=== PATIENT | male | born 1970 | race African-American/Black ===

== ENCOUNTER 2025-07-24 02:03 | Emergency (ER) | payer SELFPAY ==
[~2025-07-24] VITALS: Ht 180.3 cm; Wt 91.0 kg
[2025-07-24 02:07] VITALS: O2SAT 99
[2025-07-24] MEDS: ONDANSETRON HCL 4MG/2ML INJ IV NR (02:38)
[2025-07-24] MEDS: SODIUM CHLORIDE 0.9% 1,000 ML IV ONE (02:38)
[2025-07-24] MEDS: KETOROLAC 15MG/ML VIAL IM NR (02:38)
[2025-07-24] MEDS: MORPHINE SULFATE 4 MG/ML INJ (FOR IV/IM USE) IV ONE ×2 (02:55→03:25)
[2025-07-24 02:57] LABS: HEMATOCRIT. 43.1 % (42.0-52.0); HEMOGLOBIN. 13.5 g/dL (14.0-18.0); MEAN PLATELET VOLUME 8.2 fl (7.4-10.4); PLATELET 272 x1000/uL (130-400); RED BLOOD CELL COUNT 5.18 mill/uL (4.7-6.1); RED CELL DISTRIBUTION WIDTH 15.0 % (11.6-14.6)
[2025-07-24 03:11] LABS: CREATININE 1.4 mg/dL (0.6-1.3); UREA NITROGEN BLOOD 12 mg/dL (9-23)
[2025-07-24 03:13] LABS: ASPARTATE AMINOTRANSFERASE 28 IU/L (<34); BILIRUBIN DIRECT 0.1 mg/dL (<=3.0); BILIRUBIN TOTAL 0.4 mg/dL (0.1-1.0); PROTEIN TOTAL 6.5 g/dL (6.0-8.3)
[2025-07-24] MEDS: CEPHALEXIN 250MG CAPSULE PO ONE (04:07)
[2025-07-24] MEDS: TAMSULOSIN HCL 0.4MG SR CAPSULE PO ONE (04:07)
[2025-07-24] MEDS: ONDANSETRON HCL 4MG/2ML INJ IV ONE (04:08)
[2025-07-24] MEDS: KETOROLAC 15MG/ML VIAL IV ONE ×2 (04:17→04:18)
[2025-07-24] MEDS: TAMSULOSIN HCL 0.4MG SR CAPSULE PO NR (04:17)
[2025-07-24 04:44] LABS: CLARITY URINE CLEAR (CLEAR); COLOR URINE YELLOW (YELLOW); GLUCOSE URINE NEGATIVE (NEGATIVE); KETONES URINE NEGATIVE (NEGATIVE); LEUKOCYTE ESTERASE URINE NEGATIVE (NEGATIVE); NITRITE URINE NEGATIVE (NEGATIVE); OCCULT BLOOD URINE TRACE (NEGATIVE); PH URINE 7.5 (4.5-8.0); PROTEIN URINE NEGATIVE (NEGATIVE); SPECIFIC GRAVITY URINE 1.007 (1.005-1.030); UROBILINOGEN URINE 0.2 E.U./dL (0.2-1.0)
[2025-07-24 05:06] LABS: *AMPHETAMINES SCREEN URINE NEGATIVE (NEGATIVE); *BARBITURATES SCREEN URINE NEGATIVE (NEGATIVE); *BENZODIAZEPINES SCREEN URINE NEGATIVE (NEGATIVE); *COCAINE SCREEN URINE NEGATIVE (NEGATIVE); CANNABINOID URINE SCREEN PRESUMPTIVE POSITIVE (NEGATIVE); ECSTASY MDMA SCREEN URINE NEGATIVE (NEGATIVE); METHADONE URINE SCREEN NEGATIVE (NEGATIVE); OPIATES URINE SCREEN PRESUMPTIVE POSITIVE (NEGATIVE); PHENCYCLIDINE URINE SCREEN NEGATIVE (NEGATIVE)
[2025-07-24] MEDS ORDERED: TAMS-54 MT (05:12)
[2025-07-24] MEDS ORDERED: ONDA4TAB50 MT (05:12)
[2025-07-24] MEDS ORDERED: HYDR-4001 MT (05:12)
[2025-07-24] MEDS ORDERED: IBUP-1455 MT (05:12)
[2025-07-24] MEDS ORDERED: CEPH500C2 MT (05:12)
[2025-07-24 06:09] VITALS: BP 123/79; PULSE 80; RESP 11; TEMP 36.9; O2SAT 100
[2025-07-24 07:00] LABS: ATYPICAL LYMPHOCYTES 3; EOSINOPHILS % MANUAL 18.0 % (0.0-5.0); LYMPHOCYTES % MANUAL 34.0 % (20.0-50.0); MONOCYTES % MANUAL 14.0 % (2.0-8.0); NEUTROPHILS % MANUAL 31.0 % (45.0-75.0); PLATELET ESTIMATE NORMAL
[2025-07-24 07:11] LABS: BACTERIA URINE NONE SEEN; RBC URINE 0-2 /hpf (0-2); SQUAMOUS EPITHELIAL CELL URINE FEW /lpf (RARE/1+); WBC URINE 0-2 /hpf (0-2)
== END 2025-07-24 06:20 | disposition home or self-care (01) ==
LOC: ER 02:03 → CMPBEDREQ 07:22
DX: N13.2 Hydronephrosis with renal and ureteral calculous obstruction (principal); Z79.899 Other long term (current) drug therapy
CPT/HCPCS: 80076; 80305; 80048; 81003; 80320; 83690; 85025; 36415; 74176; 96361; 96372; 96374; 96375; 96376; 99285; J1885; J2405; J2270; Z7610; G0480